=== PATIENT | female | born 1965 | race Caucasian/White ===

== ENCOUNTER 2017-10-17 17:52 | Emergency (ER) | payer SELFPAY ==
[2017-10-17] MEDS ORDERED: Dexamethasone 4 MG TAB ONE (19:01)
[2017-10-17] MEDS ORDERED: Azithromycin 250 MG TAB ONE (19:01)
[2017-10-17] MEDS ORDERED: Ventolin HFA Inhaler 60 PUFF INHALER ONE (19:01)
[2017-10-17] MEDS ORDERED: Benzonatate 100 MG CAP ONE (19:01)
--- NOTE | 2017-10-17 19:12 | RAD ---
TWO VIEWS CHEST: 10/17/17 HISTORY: Cough. COMPARISON: 10/05/10. FINDINGS: Slight elongation of the aorta. Normal cardiac silhouette. Pulmonary vessels and hilum are normal. Co stophrenic angles are clear. No consolidation or mass. no pneumothorax or osseous abnormalities. IMPRESSION: No acute cardiopulmonary process. POS: [facility]
== END 2017-10-17 19:10 | disposition home or self-care (01) ==
LOC: MADERS 17:52
DX: J18.9 Pneumonia, unspecified organism (principal); I10 Essential (primary) hypertension; F17.210 Nicotine dependence, cigarettes, uncomplicated
CPT/HCPCS: 71046; J8540

== ENCOUNTER 2019-02-07 21:22 | Emergency (ER) | payer SELFPAY | END 2019-02-07 22:25 | disposition left against medical advice (07) | LOC: MADERS 21:22 | DX: I10 Essential (primary) hypertension (principal); F17.210 Nicotine dependence, cigarettes, uncomplicated ==

== ENCOUNTER 2024-06-04 11:16 | Outpatient (CLI) | payer BC | END 2024-06-04 11:17 | disposition home or self-care (01) | LOC: MADRAD 11:16 | PROVIDERS: ATTEND Family Medicine | DX: I50.9 Heart failure, unspecified (principal); Z95.4 Presence of other heart-valve replacement | CPT/HCPCS: 71046 ==

== ENCOUNTER 2025-03-11 12:16 | Outpatient (CLI) | payer BC | END 2025-03-11 12:17 | disposition home or self-care (01) | LOC: MADRAD 12:16 | PROVIDERS: ATTEND Family Medicine | DX: M25.512 Pain in left shoulder (principal); I50.20 Unspecified systolic (congestive) heart failure | CPT/HCPCS: 71046 ==